=== PATIENT | female | born 1995 | race American Indian/Alaskan Native ===

== ENCOUNTER 2017-09-07 14:27 | Emergency (ER) | payer OTHER ==
[2017-09-07] MEDS ORDERED: MOTRIN PO ONE (16:17)
[2017-09-07] MEDS ORDERED: CLEOCIN PO ONE (16:17)
[2017-09-07] MEDS ORDERED: DECADRON IM ONE (16:20)
--- NOTE | 2017-09-07 16:21 | Emergency Department Report ---
ED ENT HPI - General Chief complaint: Sore Throat Stated complaint: SORE THROAT Time Seen by Provider: 09/07/17 15:35 Source: patient Mode of arrival: Ambulatory Limitations: No Limitations - History of Present Illness Initial comments: 22-year-old female past medical history none presents with complaint of 3 days of progressively sore throat and some body aches. Patient is speaking full sentences no audible wheezing or stridor no visible trismus. Patient denies cough nausea or vomiting. States she has had sore throat for 3 days. Denies taking any antipyretics or pain medicines. States she has pain while swallowing solids. MD complaint: sore throat Onset/Timin -: days(s) Location: throat Severity: moderate Quality: aching Consistency: constant Worsens with: swallowing, eating Associated Symptoms: pain with swallowing, sore throat - Related Data Previous Rx's Medication Instructions Recorded Last Taken Type Clindamycin [Clindamycin CAP] 300 mg PO Q6H #28 capsule 09/07/17 Unknown Rx Dextromethorphan/Benzocaine 1 each PO Q4H PRN #1 box 09/07/17 Unknown Rx [Cepacol Sorethroat-Cough Anselmo] Ibuprofen [Motrin] 800 mg PO Q8HR PRN #30 tablet 09/07/17 Unknown Rx Allergies Allergy/AdvReac Type Severity Reaction Status Date / Time Penicillins Allergy Swelling Verified 09/07/17 14:57 ED Dental HPI - General Chief complaint: Sore Throat Stated complaint: SORE THROAT Time Seen by Provider: 09/07/17 15:35 Source: patient Mode of arrival: Ambulatory Limitations: No Limitations - Related Data Previous Rx's Medication Instructions Recorded Last Taken Type Clindamycin [Clindamycin CAP] 300 mg PO Q6H #28 capsule 09/07/17 Unknown Rx Dextromethorphan/Benzocaine 1 each PO Q4H PRN #1 box 09/07/17 Unknown Rx [Cepacol Sorethroat-Cough Anselmo] Ibuprofen [Motrin] 800 mg PO Q8HR PRN #30 tablet 09/07/17 Unknown Rx Allergies Allergy/AdvReac Type Severity Reaction Status Date / Time Penicillins Allergy Swelling Verified 09/07/17 14:57 ED Review of Systems ROS: Stated complaint: SORE THROAT Other details as noted in HPI Constitutional: denies: chills, fever Eyes: denies: eye pain, eye discharge, vision change ENT: throat pain. denies: ear pain Respiratory: denies: cough, shortness of breath, wheezing Cardiovascular: denies: chest pain, palpitations Endocrine: no symptoms reported Gastrointestinal: denies: abdominal pain, nausea, diarrhea Genitourinary: denies: urgency, dysuria, discharge Musculoskeletal: denies: back pain, joint swelling, arthralgia Skin: denies: rash, lesions Neurological: denies: headache, weakness, paresthesias Psychiatric: denies: anxiety, depression Hematological/Lymphatic: denies: easy bleeding, easy bruising ED Past Medical Hx - Past Medical History Previous Medical History?: No - Surgical History Past Surgical History?: No - Social History Smoking Status: Never Smoker Substance Use Type: Non Opiate Pain - Medications Home Medications: Home Medications Medication Instructions Recorded Confirmed Last Taken Type Clindamycin [Clindamycin CAP] 300 mg PO Q6H #28 capsule 09/07/17 Unknown Rx Dextromethorphan/Benzocaine 1 each PO Q4H PRN #1 box 09/07/17 Unknown Rx [Cepacol Sorethroat-Cough Anselmo] Ibuprofen [Motrin] 800 mg PO Q8HR PRN #30 tablet 09/07/17 Unknown Rx ED Physical Exam - General Limitations: No Limitations General appearance: alert, in no apparent distress - Head Head exam: Present: atraumatic, normocephalic - Eye Eye exam: Present: normal appearance, PERRL, EOMI - ENT ENT exam: Present: mucous membranes moist - Expanded ENT Exam Expanded Throat exam: Positive: tonsillar erythema (bilateral tonsillar erythema, no visible peritonsillar abscess, uvula is midline), tonsillomegaly, tonsillar exudate (bilateral tonsillar exudates) - Neck Neck exam: Present: normal inspection, full ROM, lymphadenopathy (tender anterior cervical adenopathy) - Respiratory Respiratory exam: Present: normal lung sounds bilaterally. Absent: respiratory distress - Cardiovascular Cardiovascular Exam: Present: regular rate, normal rhythm. Absent: systolic murmur, diastolic murmur, rubs, gallop - GI/Abdominal GI/Abdominal exam: Present: soft, normal bowel sounds - Extremities Exam Extremities exam: Present: normal inspection - Back Exam Back exam: Present: normal inspection - Neurological Exam Neurological exam: Present: alert, oriented X3 - Psychiatric Psychiatric exam: Present: normal affect, normal mood - Skin Skin exam: Present: warm, dry, intact, normal color. Absent: rash ED Course Vital Signs 09/07/17 14:58 Temperature 100.7 F H Pulse Rate 102 H Respiratory 18 Rate Blood Pressure 122/60 O2 Sat by Pulse 100 Oximetry ED Medical Decision Making - Medical Decision Making A/P: Strep tonsillitis 1-as pt is pen allergic will use clindamycin 2-pt is tolerating by mouth fluids without difficulty 3-Motrin 800 mg when necessary Critical care attestation.: If time is entered above; I have spent that time in minutes in the direct care of this critically ill patient, excluding procedure time. ED Disposition Clinical Impression: Tonsillitis, Strep sore throat Disposition: TO HOME OR SELFCARE Is pt being admited?: No Does the pt Need Aspirin: No Condition: Stable Instructions: Strep Throat (ED) Prescriptions: Clindamycin [Clindamycin CAP] 300 mg PO Q6H #28 capsule Dextromethorphan/Benzocaine [Cepacol Sorethroat-Cough Anselmo] 1 each PO Q4H PRN #1 box PRN Reason: Sore Throat Ibuprofen [Motrin] 800 mg PO Q8HR PRN #30 tablet PRN Reason: Pain Referrals: [facility] [Outside] - 3-5 Days KRYSTINA BROWN MD [Staff Physician] - 3-5 Days Forms: Work/School Release Form(ED) Time of Disposition: 16:21
[2017-09-07 16:54] VITALS: BP 127/75
== END 2017-09-07 16:55 | disposition home or self-care (01) ==
LOC: ED 14:27
DX: J03.90 Acute tonsillitis, unspecified (principal); M79.1 Myalgia; Z88.0 Allergy status to penicillin
CPT/HCPCS: 87430; 96372; 99282; J1100

== ENCOUNTER 2021-06-21 10:01 | Emergency (ER) | payer OTHER ==
[2021-06-21 10:56] VITALS: BP 99/67
== END 2021-06-21 10:55 | disposition left against medical advice (07) ==
LOC: ED 10:01
DX: R05 Cough (principal); R09.81 Nasal congestion; Z53.21 Procedure and treatment not carried out due to patient leaving prior to being seen by health care provider